=== PATIENT | female | born 1975 | race Caucasian/White ===

== ENCOUNTER 2021-10-02 21:01 | Inpatient (IN) ==
[2021-10-02] MEDS ORDERED: Ketorolac 30 MG/ML VIAL IM ONE (23:09)
[2021-10-02] MEDS ORDERED: methocarbamoL 500 MG TABLET PO ONE (23:45)
[2021-10-03] MEDS ORDERED: Ondansetron 4 MG/2 ML VIAL IVP PRN (04:07)
[2021-10-03] MEDS ORDERED: Ketorolac 30 MG/ML VIAL IM PRN (04:07)
[2021-10-03] MEDS ORDERED: Naloxone 0.4 MG/ML INJ IVP PRN (04:07)
[2021-10-03 04:11] LABS: Basophils % 0.6 %; Eosinophils % 1.2 %; Hematocrit 27.3 % (35.3-44.9); Hemoglobin 9.1 g/dL (11.5-15.4); Immature Granulocytes % 0.3 % (0-4); Immature Platelets 3.5 % (1.1-6.1); Lymphocytes # 0.8 K/mcL (0.6-4.6); Lymphocytes % 23.4 %; Mean Corpuscular HGB Conc 33.3 g/dL (31.6-35.5); Mean Corpuscular Hemoglobin 34.6 pg (28.0-33.3); Mean Corpuscular Volume 103.8 fL (83.0-100.0); Mean Platelet Volume 10.1 fL (9.4-12.4); Monocytes # 0.4 K/mcL (0.0-1.3); Monocytes % 12.7 %; Neutrophils # 2.1 K/mcL (1.6-8.9); Platelet Count 92 K/mcL (140-400); Red Blood Count 2.63 M/mcL (3.82-4.97); Red Cell Distribution Width 15.3 % (11.5-14.5); Segmented Neutrophils % 61.8 %; White Blood Count 3.4 K/mcL (4.3-11.1)
[2021-10-03 04:17] LABS: INR 1.5; Prothrombin Time 17.1 Seconds (9.4-12.1)
[2021-10-03 04:19] LABS: Activated Partial Thrombo Time 43.9 Seconds (26.0-36.0)
[2021-10-03 04:28] LABS: Alanine Aminotransferase 86 Units/L (7-52); Albumin 3.8 g/dL (3.5-5.7); Albumin/Globulin Ratio 1.6 (1.1-2.2); Alkaline Phosphatase 215 Units/L (34-104); Aspartate Amino Transferase 148 Units/L (13-39); BUN/Creatinine Ratio 14 (6-26); Bilirubin,Total 1.1 mg/dL (0.3-1.0); Blood Urea Nitrogen 7 mg/dL (6-20); Calcium 8.1 mg/dL (8.6-10.3); Carbon Dioxide 29 mEq/L (23-29); Chloride 107 mEq/L (98-107); Globulin 2.4 g/dL (2.4-3.5); Glucose 88 mg/dL (70-105); Osmolality,Calculated 291 (280-300); Sodium 142 mEq/L (136-145); Total Protein 6.2 g/dL (6.4-8.9); eGFR For African Americans > 60 (> 60); eGFR For Non-African Americans > 60 (> 60)
[2021-10-03] MEDS ORDERED: *HR* LORazepam 2 MG/ML VIAL IVP PRN ×2 (04:44)
[2021-10-03] MEDS: 0.9 % Sodium Chloride 1,000 ML IVC SCH ×2 (05:02→14:24)
[2021-10-03] MEDS: Pantoprazole 40 MG VIAL IVP SCH (08:16)
[2021-10-03 08:50] LABS: Folate 17.6 ng/mL (3.0-16.0)
[2021-10-03] MEDS ORDERED: Magnesium Sulfate 1 GM/102 ML PIGGYBACK IVPB ONE (08:55)
[2021-10-03 11:10] LABS: Bacteria,Urine Few per hpf (None-Few); Bilirubin,Urine Negative (Negative); Blood,Urine Negative (Negative); Clarity,Urine Turbid (Clear); Color,Urine Yellow (Yellow); Glucose,Urine (UA) Normal (Normal); Ketones,Urine Negative (Negative); Leukocyte Esterase,Urine Large (Negative); Mucus,Urine Few per lpf (None-Few); Nitrite,Urine Positive (Negative); Protein,Urine Trace mg/dL (Neg-Trace); Specific Gravity,Urine 1.016 (1.010-1.025); Urobilinogen,Urine Normal (Normal); WBC,Urine 30-50 per hpf (0-3)
[2021-10-03 13:24] LABS: Amphetamine Screen,Urine Negative ng/mL (Cutoff=1000); Barbiturate Screen,Urine Negative ng/mL (Cutoff=200); Benzodiazepines Screen,Urine Negative ng/mL (Cutoff=200); Cannabinoid Screen,Urine Negative ng/mL (Cutoff = 50); Cocaine Screen,Urine Negative ng/mL (Cutoff= 300); Opiate Screen,Urine Negative ng/mL (Cutoff=300); Phencyclidine Screen,Urine Negative ng/mL (Cutoff=25)
[2021-10-03] MEDS ORDERED: Thiamine (B-1) 100 MG, Folic Acid 1 MG, MVI, adult with vitamin K 10 ML in 0.9 % Sodi... IVPB SCH (18:00)
[2021-10-03] MEDS ORDERED: cefTRIAXone 1,000 MG in 0.9 % Sodium Chloride 10 ML IVP SCH (20:00)
[2021-10-03] MEDS ORDERED: GI Cocktail 40 ML EACH PO ONE (20:30)
[2021-10-03] MEDS ORDERED: methocarbamoL 500 MG TABLET PO ONE (23:09)
[2021-10-04 04:24] LABS: Hemoglobin 9.7 g/dL (11.5-15.4); Segmented Neutrophils % 65.4 %
[2021-10-04 04:26] LABS: Basophils % 0.5 %; Eosinophils # 0.1 K/mcL (0.0-0.6); Eosinophils % 1.5 %; Hematocrit 30.1 % (35.3-44.9); Immature Granulocytes % 0.2 % (0-4); Immature Platelets 3.3 % (1.1-6.1); Lymphocytes # 0.6 K/mcL (0.6-4.6); Lymphocytes % 15.3 %; Mean Corpuscular HGB Conc 32.2 g/dL (31.6-35.5); Mean Corpuscular Hemoglobin 34.3 pg (28.0-33.3); Mean Corpuscular Volume 106.4 fL (83.0-100.0); Mean Platelet Volume 9.8 fL (9.4-12.4); Monocytes # 0.7 K/mcL (0.0-1.3); Monocytes % 17.1 %; Neutrophils # 2.6 K/mcL (1.6-8.9); Red Blood Count 2.83 M/mcL (3.82-4.97); Red Cell Distribution Width 15.4 % (11.5-14.5)
[2021-10-04 04:35] LABS: Platelet Count 88 K/mcL (140-400)
[2021-10-04 04:55] LABS: Alanine Aminotransferase 68 Units/L (7-52); Albumin 3.6 g/dL (3.5-5.7); Albumin/Globulin Ratio 1.3 (1.1-2.2); Alkaline Phosphatase 171 Units/L (34-104); Aspartate Amino Transferase 104 Units/L (13-39); BUN/Creatinine Ratio 16 (6-26); Bilirubin,Total 1.9 mg/dL (0.3-1.0); Blood Urea Nitrogen 7 mg/dL (6-20); Calcium 8.3 mg/dL (8.6-10.3); Carbon Dioxide 22 mEq/L (23-29); Chloride 100 mEq/L (98-107); Globulin 2.8 g/dL (2.4-3.5); Glucose 91 mg/dL (70-105); Osmolality,Calculated 272 (280-300); Potassium 3.7 mEq/L (3.5-5.1); Sodium 132 mEq/L (136-145); Total Protein 6.4 g/dL (6.4-8.9); eGFR For African Americans > 60 (> 60); eGFR For Non-African Americans > 60 (> 60)
[2021-10-04] MEDS: Pantoprazole 40 MG VIAL IVP SCH (07:56)
[2021-10-04] MEDS ORDERED: Albuterol 2.5 MG/3 ML NEBULIZER IH PRN (08:14)
[2021-10-04] MEDS ORDERED: *HR* FentaNYL (PF) 100 MCG/2 ML VIAL IVP PRN (08:14)
[2021-10-04] MEDS ORDERED: *HR* HYDROmorphone PF 0.5 MG/0.5 ML SYRINGE IVP PRN (08:14)
[2021-10-04] MEDS ORDERED: Ondansetron 4 MG/2 ML VIAL ONE (09:23)
[2021-10-04] MEDS ORDERED: *HR* Rocuronium Bromide 50 MG/5 ML VIAL ONE (09:23)
[2021-10-04] MEDS ORDERED: *HR* Propofol 200 MG/20 ML VIAL IVP ONE (09:23)
[2021-10-04] MEDS ORDERED: *HR* Succinylcholine 200 MG/10 ML VIAL IVP ONE (09:23)
[2021-10-04] MEDS ORDERED: *HR* FentaNYL (PF) 100 MCG/2 ML VIAL ONE (09:23)
[2021-10-04] MEDS ORDERED: Lidocaine -MPF 2% 5 ML VIAL ONE (09:23)
[2021-10-04] MEDS ORDERED: Vancomycin 1,000 MG VIAL ONE (09:24)
[2021-10-04] MEDS ORDERED: Tranexamic Acid 1,000 MG/10 ML VIAL ONE (09:27)
[2021-10-04] MEDS ORDERED: Ipratropium/Albuterol Neb 3 ML IH ONE (09:34)
[2021-10-04] MEDS ORDERED: Gentamicin 80 MG/2 ML VIAL ONE ×2 (10:04→10:09)
[2021-10-04] MEDS ORDERED: *HR* HYDROMORPHONE 2 MG/ML VIAL ONE (10:19)
[2021-10-04] MEDS ORDERED: Povidone-Iodine 45 ML, Sodium Chloride IRRigation 1,000 ML IR ONE (10:55)
[2021-10-04] MEDS ORDERED: TOTAL JOINT MIXTURE (100ML) INTRAART ONE (10:55)
[2021-10-04 11:33] LABS: Basophils % 0.6 %; Eosinophils % 2.1 %; Hemoglobin 8.5 g/dL (11.5-15.4); Mean Corpuscular Hemoglobin 34.4 pg (28.0-33.3); Mean Platelet Volume 10.3 fL (9.4-12.4); Nucleated Red Blood Cells 0.4 /100 WBC (0); Red Blood Count 2.47 M/mcL (3.82-4.97)
[2021-10-04 11:34] LABS: Eosinophils # 0.1 K/mcL (0.0-0.6); Hematocrit 25.6 % (35.3-44.9); Immature Platelets 4.5 % (1.1-6.1); Lymphocytes # 1.3 K/mcL (0.6-4.6); Lymphocytes % 25.1 %; Mean Corpuscular HGB Conc 33.2 g/dL (31.6-35.5); Mean Corpuscular Volume 103.6 fL (83.0-100.0); Monocytes # 0.7 K/mcL (0.0-1.3); Monocytes % 12.5 %; Red Cell Distribution Width 15.5 % (11.5-14.5); Segmented Neutrophils % 58.7 %; White Blood Count 5.2 K/mcL (4.3-11.1)
[2021-10-04 11:38] LABS: Neutrophils # 3.1 K/mcL (1.6-8.9); Platelet Count 90 K/mcL (140-400)
[2021-10-04] MEDS ORDERED: Naloxone 0.4 MG/ML INJ IVP PRN ×2 (12:48)
[2021-10-04] MEDS ORDERED: *HR* Promethazine 25 MG/ML VIAL IM PRN (12:48)
[2021-10-04] MEDS ORDERED: Ringers Solution, Lactated 1,000 ML IVC SCH (12:48)
[2021-10-04] MEDS ORDERED: Ketorolac 30 MG/ML VIAL IVP SCH (12:48)
[2021-10-04] MEDS ORDERED: Ondansetron 4 MG/2 ML VIAL IVP PRN ×2 (12:48)
[2021-10-04] MEDS ORDERED: *HR* LORazepam 2 MG/ML VIAL IVP PRN ×2 (12:48)
[2021-10-04] MEDS: CeFAZolin 2 GM/120 ML BAG IVPB SCH (17:15)
[2021-10-04] MEDS: Thiamine (B-1) 100 MG, Folic Acid 1 MG, MVI, adult with vitamin K 10 ML in 0.9 % Sodi... IVPB SCH (17:15)
[2021-10-04] MEDS: Ascorbic Acid 500 MG TABLET PO SCH (17:21)
[2021-10-04] MEDS: *HR* OxyCODONE Immed Rel 5 MG TABLET PO PRN ×2 (17:43→21:58)
[2021-10-04] MEDS ORDERED: Gabapentin 300 MG CAPSULE PO SCH (21:00)
[2021-10-04] MEDS: Gabapentin 300 MG CAPSULE PO SCH (21:29)
[2021-10-04] MEDS: Lactulose Oral Soln 20 GM/30 ML UDC PO SCH (21:29)
[2021-10-05] MEDS: ESTRADIOL TP SCH (00:12)
[2021-10-05] MEDS: CeFAZolin 2 GM/120 ML BAG IVPB SCH ×3 (02:45→18:49)
[2021-10-05] MEDS: *HR* OxyCODONE Immed Rel 5 MG TABLET PO PRN ×5 (03:25→23:46)
[2021-10-05 05:18] LABS: Eosinophils % 0.2 %; Hematocrit 24.3 % (35.3-44.9); Hemoglobin 8.1 g/dL (11.5-15.4); Immature Granulocytes % 0.2 % (0-4); Lymphocytes # 0.4 K/mcL (0.6-4.6); Lymphocytes % 7.8 %; Mean Corpuscular HGB Conc 33.3 g/dL (31.6-35.5); Mean Corpuscular Hemoglobin 34.8 pg (28.0-33.3); Mean Corpuscular Volume 104.3 fL (83.0-100.0); Mean Platelet Volume 10.5 fL (9.4-12.4); Monocytes # 0.8 K/mcL (0.0-1.3); Monocytes % 14.8 %; Neutrophils # 4.1 K/mcL (1.6-8.9); Platelet Count 104 K/mcL (140-400); Red Blood Count 2.33 M/mcL (3.82-4.97); Red Cell Distribution Width 15.5 % (11.5-14.5); White Blood Count 5.3 K/mcL (4.3-11.1)
[2021-10-05 05:36] LABS: BUN/Creatinine Ratio 17 (6-26); Blood Urea Nitrogen 7 mg/dL (6-20); Calcium 8.2 mg/dL (8.6-10.3); Carbon Dioxide 24 mEq/L (23-29); Chloride 101 mEq/L (98-107); Glucose 143 mg/dL (70-105); Osmolality,Calculated 274 (280-300); Potassium 4.3 mEq/L (3.5-5.1); Sodium 132 mEq/L (136-145); eGFR For African Americans > 60 (> 60); eGFR For Non-African Americans > 60 (> 60)
[2021-10-05 05:40] LABS: Albumin 3.5 g/dL (3.5-5.7); Albumin/Globulin Ratio 1.3 (1.1-2.2); Bilirubin,Direct 0.5 mg/dL (0.0-0.2); Bilirubin,Indirect 0.8 mg/dL (0.0-1.0); Bilirubin,Total 1.3 mg/dL (0.3-1.0); Globulin 2.7 g/dL (2.4-3.5); Total Protein 6.2 g/dL (6.4-8.9)
[2021-10-05] MEDS ORDERED: MAGNESIUM HYDROXIDE 400 MG/5 ML PO SCH (09:00)
[2021-10-05] MEDS ORDERED: Pantoprazole 40 MG VIAL IVP SCH (09:00)
[2021-10-05] MEDS ORDERED: [UNRECOGNIZED DRUG - OTHER] PO SCH (09:00)
[2021-10-05] MEDS: Lactulose Oral Soln 20 GM/30 ML UDC PO SCH ×3 (09:09→20:55)
[2021-10-05] MEDS: Gabapentin 300 MG CAPSULE PO SCH ×3 (09:10→20:55)
[2021-10-05] MEDS: Multivit/Ca/Min/Fe/FA 1 TAB TABLET PO SCH (09:10)
[2021-10-05] MEDS: Folic Acid 1 MG TABLET PO SCH (09:10)
[2021-10-05] MEDS: Spironolactone 25 MG TABLET PO SCH (09:10)
[2021-10-05] MEDS: Ascorbic Acid 500 MG TABLET PO SCH ×2 (09:10→18:22)
[2021-10-05] MEDS: Aspirin Enteric Coated 81 MG Tablet PO SCH ×2 (11:15→20:55)
[2021-10-05] MEDS: Thiamine (B-1) 100 MG, Folic Acid 1 MG, MVI, adult with vitamin K 10 ML in 0.9 % Sodi... IVPB SCH (18:23)
[2021-10-06] MEDS: CeFAZolin 2 GM/120 ML BAG IVPB SCH ×3 (01:36→18:04)
[2021-10-06 03:30] LABS: Basophils % 0.2 %; Eosinophils # 0.1 K/mcL (0.0-0.6); Eosinophils % 1.6 %; Hematocrit 21.8 % (35.3-44.9); Hemoglobin 7.1 g/dL (11.5-15.4); Immature Granulocytes % 0.5 % (0-4); Lymphocytes # 0.9 K/mcL (0.6-4.6); Mean Corpuscular HGB Conc 32.6 g/dL (31.6-35.5); Mean Corpuscular Hemoglobin 34.6 pg (28.0-33.3); Mean Corpuscular Volume 106.3 fL (83.0-100.0); Mean Platelet Volume 10.1 fL (9.4-12.4); Neutrophils # 3.7 K/mcL (1.6-8.9); Platelet Count 123 K/mcL (140-400); Red Blood Count 2.05 M/mcL (3.82-4.97); Red Cell Distribution Width 16.2 % (11.5-14.5); Segmented Neutrophils % 64.7 %; White Blood Count 5.7 K/mcL (4.3-11.1)
[2021-10-06 03:52] LABS: BUN/Creatinine Ratio 15 (6-26); Blood Urea Nitrogen 8 mg/dL (6-20); Calcium 8.1 mg/dL (8.6-10.3); Carbon Dioxide 26 mEq/L (23-29); Chloride 105 mEq/L (98-107); Glucose 114 mg/dL (70-105); Osmolality,Calculated 285 (280-300); Potassium 3.8 mEq/L (3.5-5.1); Sodium 138 mEq/L (136-145); eGFR For African Americans > 60 (> 60); eGFR For Non-African Americans > 60 (> 60)
[2021-10-06 03:54] LABS: Albumin 3.3 g/dL (3.5-5.7); Albumin/Globulin Ratio 1.4 (1.1-2.2); Bilirubin,Direct 0.4 mg/dL (0.0-0.2); Bilirubin,Indirect 0.5 mg/dL (0.0-1.0); Bilirubin,Total 0.9 mg/dL (0.3-1.0); Globulin 2.4 g/dL (2.4-3.5); Total Protein 5.7 g/dL (6.4-8.9)
[2021-10-06] MEDS: *HR* OxyCODONE Immed Rel 5 MG TABLET PO PRN ×4 (06:45→22:38)
[2021-10-06] MEDS: Spironolactone 25 MG TABLET PO SCH (08:33)
[2021-10-06] MEDS: Multivit/Ca/Min/Fe/FA 1 TAB TABLET PO SCH (08:33)
[2021-10-06] MEDS: Folic Acid 1 MG TABLET PO SCH (08:33)
[2021-10-06] MEDS: Ascorbic Acid 500 MG TABLET PO SCH ×2 (08:33→17:57)
[2021-10-06] MEDS: Gabapentin 300 MG CAPSULE PO SCH ×3 (08:33→22:27)
[2021-10-06] MEDS: Aspirin Enteric Coated 81 MG Tablet PO SCH ×2 (08:33→22:27)
[2021-10-06] MEDS: Lactulose Oral Soln 20 GM/30 ML UDC PO SCH ×3 (08:39→22:28)
[2021-10-06 10:03] LABS: Hematocrit 23.8 % (35.3-44.9); Hemoglobin 7.8 g/dL (11.5-15.4)
[2021-10-07] MEDS: *HR* OxyCODONE Immed Rel 5 MG TABLET PO PRN ×5 (03:35→23:49)
[2021-10-07] MEDS: CeFAZolin 2 GM/120 ML BAG IVPB SCH ×3 (03:35→17:20)
[2021-10-07 07:17] LABS: Eosinophils # 0.1 K/mcL (0.0-0.6); Hematocrit 23.3 % (35.3-44.9); Hemoglobin 7.4 g/dL (11.5-15.4); Mean Corpuscular HGB Conc 31.8 g/dL (31.6-35.5); Mean Corpuscular Hemoglobin 33.8 pg (28.0-33.3); Mean Corpuscular Volume 106.4 fL (83.0-100.0); Mean Platelet Volume 9.6 fL (9.4-12.4); Nucleated Red Blood Cells 0.6 /100 WBC (0); Platelet Count 135 K/mcL (140-400); Red Blood Count 2.19 M/mcL (3.82-4.97); Red Cell Distribution Width 16.7 % (11.5-14.5); White Blood Count 4.8 K/mcL (4.3-11.1)
[2021-10-07 07:29] LABS: BUN/Creatinine Ratio 14 (6-26); Blood Urea Nitrogen 7 mg/dL (6-20); Carbon Dioxide 28 mEq/L (23-29); Chloride 103 mEq/L (98-107); Glucose 99 mg/dL (70-105); Osmolality,Calculated 280 (280-300); Potassium 3.7 mEq/L (3.5-5.1); Sodium 136 mEq/L (136-145); eGFR For African Americans > 60 (> 60); eGFR For Non-African Americans > 60 (> 60)
[2021-10-07 08:17] LABS: Lymphocytes # 0.5 K/mcL (0.6-4.6); Monocytes # 0.6 K/mcL (0.0-1.3); Neutrophils # 3.7 K/mcL (1.6-8.9)
[2021-10-07 08:18] LABS: Hypochromasia Present (Not Present); Polychromasia 1+ (Not Present)
[2021-10-07 08:19] LABS: Anisocytosis 1+ (Not Present); Platelet Estimate Normal (Normal); Poikilocytosis 1+ (Not Present)
[2021-10-07] MEDS: Lactulose Oral Soln 20 GM/30 ML UDC PO SCH ×3 (08:50→20:32)
[2021-10-07] MEDS: Aspirin Enteric Coated 81 MG Tablet PO SCH ×2 (08:51→19:39)
[2021-10-07] MEDS: Gabapentin 300 MG CAPSULE PO SCH ×3 (08:51→20:32)
[2021-10-07] MEDS: Multivit/Ca/Min/Fe/FA 1 TAB TABLET PO SCH (08:51)
[2021-10-07] MEDS: Folic Acid 1 MG TABLET PO SCH (08:51)
[2021-10-07] MEDS: Ascorbic Acid 500 MG TABLET PO SCH ×2 (08:52→17:08)
[2021-10-07] MEDS: Spironolactone 25 MG TABLET PO SCH (08:52)
[2021-10-07] MEDS: ESTRADIOL TP SCH (17:08)
[2021-10-07] MEDS: MOM Conc 10 ML UD.LIQ PO PRN (17:11)
[2021-10-07] MEDS: Sennosides 8.6 MG TABLET PO PRN (19:39)
[2021-10-08] MEDS: CeFAZolin 2 GM/120 ML BAG IVPB SCH ×3 (02:19→18:31)
[2021-10-08] MEDS: *HR* OxyCODONE Immed Rel 5 MG TABLET PO PRN ×3 (06:27→21:05)
[2021-10-08 06:55] LABS: Basophils % 0.4 %; Eosinophils % 1.2 %; Hematocrit 23.9 % (35.3-44.9); Hemoglobin 7.8 g/dL (11.5-15.4); Immature Granulocytes % 0.8 % (0-4); Lymphocytes % 20.8 %; Mean Corpuscular HGB Conc 32.6 g/dL (31.6-35.5); Mean Corpuscular Hemoglobin 34.7 pg (28.0-33.3); Mean Corpuscular Volume 106.2 fL (83.0-100.0); Mean Platelet Volume 9.4 fL (9.4-12.4); Monocytes % 19.2 %; Platelet Count 130 K/mcL (140-400); Red Blood Count 2.25 M/mcL (3.82-4.97); Red Cell Distribution Width 16.5 % (11.5-14.5); Segmented Neutrophils % 57.6 %
[2021-10-08 06:56] LABS: Eosinophils # 0.1 K/mcL (0.0-0.6); Neutrophils # 2.9 K/mcL (1.6-8.9); Nucleated Red Blood Cells 0.4 /100 WBC (0)
[2021-10-08 07:12] LABS: BUN/Creatinine Ratio 13 (6-26); Blood Urea Nitrogen 7 mg/dL (6-20); Calcium 7.9 mg/dL (8.6-10.3); Carbon Dioxide 29 mEq/L (23-29); Chloride 98 mEq/L (98-107); Glucose 113 mg/dL (70-105); Osmolality,Calculated 273 (280-300); Potassium 3.8 mEq/L (3.5-5.1); Sodium 132 mEq/L (136-145); eGFR For African Americans > 60 (> 60); eGFR For Non-African Americans > 60 (> 60)
[2021-10-08] MEDS: Lactulose Oral Soln 20 GM/30 ML UDC PO SCH ×3 (10:14→21:05)
[2021-10-08] MEDS: Gabapentin 300 MG CAPSULE PO SCH ×3 (10:14→21:04)
[2021-10-08] MEDS: Aspirin Enteric Coated 81 MG Tablet PO SCH ×2 (10:14→21:04)
[2021-10-08] MEDS: Multivit/Ca/Min/Fe/FA 1 TAB TABLET PO SCH (10:15)
[2021-10-08] MEDS: Ascorbic Acid 500 MG TABLET PO SCH ×2 (10:15→18:29)
[2021-10-08] MEDS: Folic Acid 1 MG TABLET PO SCH (10:15)
[2021-10-08] MEDS: Spironolactone 25 MG TABLET PO SCH (10:15)
[2021-10-08] MEDS: MOM Conc 10 ML UD.LIQ PO PRN (21:07)
[2021-10-09 02:40] LABS: Basophils % 0.4 %; Eosinophils % 0.8 %; Hematocrit 23.8 % (35.3-44.9); Hemoglobin 7.7 g/dL (11.5-15.4); Immature Granulocytes % 0.6 % (0-4); Lymphocytes # 1.1 K/mcL (0.6-4.6); Lymphocytes % 19.9 %; Mean Corpuscular HGB Conc 32.4 g/dL (31.6-35.5); Mean Corpuscular Hemoglobin 34.1 pg (28.0-33.3); Mean Corpuscular Volume 105.3 fL (83.0-100.0); Mean Platelet Volume 9.8 fL (9.4-12.4); Monocytes # 1.1 K/mcL (0.0-1.3); Monocytes % 20.1 %; Neutrophils # 3.1 K/mcL (1.6-8.9); Platelet Count 133 K/mcL (140-400); Red Blood Count 2.26 M/mcL (3.82-4.97); Red Cell Distribution Width 16.5 % (11.5-14.5); Segmented Neutrophils % 58.2 %; White Blood Count 5.3 K/mcL (4.3-11.1)
[2021-10-09 02:43] LABS: BUN/Creatinine Ratio 13 (6-26); Blood Urea Nitrogen 6 mg/dL (6-20); Carbon Dioxide 24 mEq/L (23-29); Chloride 98 mEq/L (98-107); Glucose 111 mg/dL (70-105); Magnesium 1.8 mg/dL (1.6-2.6); Osmolality,Calculated 266 (280-300); Phosphorous 2.6 mg/dL (2.7-4.5); Potassium 4.3 mEq/L (3.5-5.1); Sodium 129 mEq/L (136-145); eGFR For African Americans > 60 (> 60); eGFR For Non-African Americans > 60 (> 60)
[2021-10-09] MEDS: CeFAZolin 2 GM/120 ML BAG IVPB SCH ×3 (02:54→18:16)
[2021-10-09] MEDS: *HR* OxyCODONE Immed Rel 5 MG TABLET PO PRN ×3 (02:55→20:06)
[2021-10-09 03:17] LABS: Platelet Estimate Normal (Normal); Polychromasia 1+ (Not Present)
[2021-10-09] MEDS: Spironolactone 25 MG TABLET PO SCH (08:58)
[2021-10-09] MEDS: Folic Acid 1 MG TABLET PO SCH (08:58)
[2021-10-09] MEDS: Gabapentin 300 MG CAPSULE PO SCH ×3 (08:58→20:04)
[2021-10-09] MEDS: Lactulose Oral Soln 20 GM/30 ML UDC PO SCH ×3 (08:58→20:04)
[2021-10-09] MEDS: Ascorbic Acid 500 MG TABLET PO SCH ×2 (08:58→18:11)
[2021-10-09] MEDS: Aspirin Enteric Coated 81 MG Tablet PO SCH ×2 (08:58→20:04)
[2021-10-09] MEDS: Multivit/Ca/Min/Fe/FA 1 TAB TABLET PO SCH (08:59)
[2021-10-09] MEDS: MOM Conc 10 ML UD.LIQ PO PRN (09:03)
[2021-10-10] MEDS: *HR* OxyCODONE Immed Rel 5 MG TABLET PO PRN ×5 (00:18→20:21)
[2021-10-10] MEDS: CeFAZolin 2 GM/120 ML BAG IVPB SCH ×3 (02:06→17:31)
[2021-10-10 06:57] LABS: Basophils % 0.7 %; Eosinophils # 0.1 K/mcL (0.0-0.6); Eosinophils % 1.3 %; Hematocrit 23.1 % (35.3-44.9); Hemoglobin 7.5 g/dL (11.5-15.4); Immature Granulocytes % 0.2 % (0-4); Lymphocytes # 0.9 K/mcL (0.6-4.6); Lymphocytes % 20.4 %; Mean Corpuscular HGB Conc 32.5 g/dL (31.6-35.5); Mean Corpuscular Hemoglobin 33.6 pg (28.0-33.3); Mean Corpuscular Volume 103.6 fL (83.0-100.0); Mean Platelet Volume 9.8 fL (9.4-12.4); Monocytes # 0.9 K/mcL (0.0-1.3); Monocytes % 18.9 %; Neutrophils # 2.7 K/mcL (1.6-8.9); Platelet Count 152 K/mcL (140-400); Red Blood Count 2.23 M/mcL (3.82-4.97); Red Cell Distribution Width 16.4 % (11.5-14.5); Segmented Neutrophils % 58.5 %; White Blood Count 4.6 K/mcL (4.3-11.1)
[2021-10-10 07:12] LABS: Platelet Estimate Normal (Normal)
[2021-10-10 07:18] LABS: BUN/Creatinine Ratio 12 (6-26); Blood Urea Nitrogen 6 mg/dL (6-20); Carbon Dioxide 27 mEq/L (23-29); Chloride 98 mEq/L (98-107); Glucose 105 mg/dL (70-105); Magnesium 1.8 mg/dL (1.6-2.6); Osmolality,Calculated 270 (280-300); Phosphorous 2.4 mg/dL (2.7-4.5); Potassium 3.6 mEq/L (3.5-5.1); Sodium 131 mEq/L (136-145); eGFR For African Americans > 60 (> 60); eGFR For Non-African Americans > 60 (> 60)
[2021-10-10] MEDS: Folic Acid 1 MG TABLET PO SCH (08:33)
[2021-10-10] MEDS: Gabapentin 300 MG CAPSULE PO SCH ×3 (08:34→20:14)
[2021-10-10] MEDS: Lactulose Oral Soln 20 GM/30 ML UDC PO SCH ×3 (08:34→20:14)
[2021-10-10] MEDS: Multivit/Ca/Min/Fe/FA 1 TAB TABLET PO SCH (08:34)
[2021-10-10] MEDS: Ascorbic Acid 500 MG TABLET PO SCH ×2 (08:34→17:31)
[2021-10-10] MEDS: Aspirin Enteric Coated 81 MG Tablet PO SCH ×2 (08:34→20:14)
[2021-10-10] MEDS: Spironolactone 25 MG TABLET PO SCH (08:34)
[2021-10-10] MEDS: ESTRADIOL TP SCH (17:32)
[2021-10-11] MEDS: CeFAZolin 2 GM/120 ML BAG IVPB SCH (01:59)
[2021-10-11] MEDS: *HR* OxyCODONE Immed Rel 5 MG TABLET PO PRN ×5 (04:54→21:58)
[2021-10-11 05:51] LABS: Hematocrit 24.1 % (35.3-44.9); Hemoglobin 7.9 g/dL (11.5-15.4)
[2021-10-11 06:24] LABS: BUN/Creatinine Ratio 17 (6-26); Blood Urea Nitrogen 7 mg/dL (6-20); Carbon Dioxide 27 mEq/L (23-29); Chloride 99 mEq/L (98-107); Glucose 93 mg/dL (70-105); Magnesium 1.7 mg/dL (1.6-2.6); Osmolality,Calculated 272 (280-300); Phosphorous 3.3 mg/dL (2.7-4.5); Potassium 3.6 mEq/L (3.5-5.1); Sodium 132 mEq/L (136-145); eGFR For African Americans > 60 (> 60); eGFR For Non-African Americans > 60 (> 60)
[2021-10-11] MEDS: Multivit/Ca/Min/Fe/FA 1 TAB TABLET PO SCH (09:52)
[2021-10-11] MEDS: Lactulose Oral Soln 20 GM/30 ML UDC PO SCH ×3 (09:52→19:43)
[2021-10-11] MEDS: Aspirin Enteric Coated 81 MG Tablet PO SCH ×2 (09:52→19:33)
[2021-10-11] MEDS: Spironolactone 25 MG TABLET PO SCH (09:53)
[2021-10-11] MEDS: Folic Acid 1 MG TABLET PO SCH (09:53)
[2021-10-11] MEDS: Gabapentin 300 MG CAPSULE PO SCH ×3 (09:53→19:32)
[2021-10-11] MEDS: Ascorbic Acid 500 MG TABLET PO SCH ×2 (09:58→17:06)
[2021-10-12] MEDS: *HR* OxyCODONE Immed Rel 5 MG TABLET PO PRN ×5 (06:10→22:23)
[2021-10-12] MEDS: Spironolactone 25 MG TABLET PO SCH (10:32)
[2021-10-12] MEDS: Folic Acid 1 MG TABLET PO SCH (10:32)
[2021-10-12] MEDS: Aspirin Enteric Coated 81 MG Tablet PO SCH ×2 (10:32→22:17)
[2021-10-12] MEDS: Ascorbic Acid 500 MG TABLET PO SCH ×2 (10:32→18:21)
[2021-10-12] MEDS: Multivit/Ca/Min/Fe/FA 1 TAB TABLET PO SCH (10:32)
[2021-10-12] MEDS: Lactulose Oral Soln 20 GM/30 ML UDC PO SCH ×3 (10:33→22:17)
[2021-10-12] MEDS: Gabapentin 300 MG CAPSULE PO SCH ×3 (10:33→20:03)
[2021-10-12] MEDS: Nystatin POWDER 30 GM BOTTLE TP SCH (18:21)
[2021-10-12] MEDS: Sennosides 8.6 MG TABLET PO PRN (18:21)
[2021-10-12] MEDS: Ringers Solution, Lactated 1,000 ML IVC SCH (22:17)
[2021-10-12] MEDS ORDERED: Morphine Sulfate 2 MG/ML SYRINGE IVP ONE (23:39)
[2021-10-13] MEDS: *HR* OxyCODONE Immed Rel 5 MG TABLET PO PRN ×2 (03:25→07:42)
[2021-10-13] MEDS: Ringers Solution, Lactated 1,000 ML IVC SCH (04:39)
[2021-10-13] MEDS ORDERED: *HR* Dextrose 50 % in Water (Syg) 50 ML SYRINGE IVP PRN (07:32)
[2021-10-13] MEDS ORDERED: Dextrose Gel 15 GM/37.5 ML TUBE PO PRN ×2 (07:32)
[2021-10-13] MEDS ORDERED: D5% in Water 1,000 ML IVC PRN (07:32)
[2021-10-13] MEDS: Lactulose Oral Soln 20 GM/30 ML UDC PO SCH ×3 (07:39→21:09)
[2021-10-13] MEDS: Multivit/Ca/Min/Fe/FA 1 TAB TABLET PO SCH (07:41)
[2021-10-13] MEDS: Folic Acid 1 MG TABLET PO SCH (07:41)
[2021-10-13] MEDS: Gabapentin 300 MG CAPSULE PO SCH ×3 (07:41→21:10)
[2021-10-13] MEDS: Ascorbic Acid 500 MG TABLET PO SCH ×2 (07:41→16:16)
[2021-10-13] MEDS: Aspirin Enteric Coated 81 MG Tablet PO SCH ×2 (07:42→21:10)
[2021-10-13] MEDS: Spironolactone 25 MG TABLET PO SCH (07:42)
[2021-10-13] MEDS ORDERED: Ringers Solution, Lactated 1,000 ML IVC SCH (07:45)
[2021-10-13] MEDS ORDERED: *HR* HYDROmorphone (PF) 1 MG/ML SYRINGE IVP ONE (08:22)
[2021-10-13] MEDS: Pantoprazole 40 MG VIAL IVP SCH (09:40)
[2021-10-13] MEDS: Nystatin POWDER 30 GM BOTTLE TP SCH ×3 (14:07→21:10)
[2021-10-13] MEDS: ESTRADIOL TP SCH (16:16)
[2021-10-13] MEDS: MOM Conc 10 ML UD.LIQ PO PRN (21:14)
[2021-10-14 04:14] LABS: Basophils # 0.1 K/mcL (0.0-0.2); Basophils % 1.5 %; Eosinophils # 0.1 K/mcL (0.0-0.6); Eosinophils % 2.5 %; Hematocrit 25.3 % (35.3-44.9); Immature Granulocytes % 0.5 % (0-4); Lymphocytes % 24.6 %; Mean Corpuscular HGB Conc 31.6 g/dL (31.6-35.5); Mean Corpuscular Hemoglobin 33.8 pg (28.0-33.3); Mean Corpuscular Volume 106.8 fL (83.0-100.0); Mean Platelet Volume 9.5 fL (9.4-12.4); Monocytes # 0.6 K/mcL (0.0-1.3); Monocytes % 15.9 %; Neutrophils # 2.2 K/mcL (1.6-8.9); Platelet Count 223 K/mcL (140-400); Red Blood Count 2.37 M/mcL (3.82-4.97); Red Cell Distribution Width 17.4 % (11.5-14.5)
[2021-10-14 04:35] LABS: BUN/Creatinine Ratio 13 (6-26); Blood Urea Nitrogen 5 mg/dL (6-20); Calcium 8.2 mg/dL (8.6-10.3); Carbon Dioxide 27 mEq/L (23-29); Chloride 102 mEq/L (98-107); Glucose 86 mg/dL (70-105); Magnesium 1.7 mg/dL (1.6-2.6); Osmolality,Calculated 281 (280-300); Phosphorous 3.7 mg/dL (2.7-4.5); Potassium 3.6 mEq/L (3.5-5.1); Sodium 137 mEq/L (136-145); eGFR For African Americans > 60 (> 60); eGFR For Non-African Americans > 60 (> 60)
[2021-10-14 04:40] LABS: Anisocytosis 1+ (Not Present); Platelet Estimate Normal (Normal); Polychromasia 1+ (Not Present)
[2021-10-14 04:41] LABS: Reactive Lymphocytes Present (Not Present)
[2021-10-14] MEDS: Lactulose Oral Soln 20 GM/30 ML UDC PO SCH ×3 (08:57→19:47)
[2021-10-14] MEDS: Pantoprazole 40 MG VIAL IVP SCH (08:58)
[2021-10-14] MEDS: Multivit/Ca/Min/Fe/FA 1 TAB TABLET PO SCH (08:58)
[2021-10-14] MEDS: Aspirin Enteric Coated 81 MG Tablet PO SCH ×2 (08:58→19:47)
[2021-10-14] MEDS: Folic Acid 1 MG TABLET PO SCH (08:58)
[2021-10-14] MEDS: Gabapentin 300 MG CAPSULE PO SCH ×3 (08:58→19:47)
[2021-10-14] MEDS: Ascorbic Acid 500 MG TABLET PO SCH ×2 (08:58→15:37)
[2021-10-14] MEDS: Nystatin POWDER 30 GM BOTTLE TP SCH ×3 (08:59→19:51)
[2021-10-14] MEDS ORDERED: Ringers Solution, Lactated 1,000 ML IVC SCH (09:00)
[2021-10-14 10:25] LABS: Amylase 15 Units/L (29-103); Lipase 25 Units/L (11-82)
[2021-10-15 07:22] LABS: Basophils # 0.1 K/mcL (0.0-0.2); Basophils % 1.3 %; Eosinophils # 0.1 K/mcL (0.0-0.6); Hematocrit 25.2 % (35.3-44.9); Immature Granulocytes % 0.5 % (0-4); Lymphocytes # 1.3 K/mcL (0.6-4.6); Mean Corpuscular HGB Conc 31.7 g/dL (31.6-35.5); Mean Corpuscular Hemoglobin 33.6 pg (28.0-33.3); Mean Corpuscular Volume 105.9 fL (83.0-100.0); Mean Platelet Volume 9.4 fL (9.4-12.4); Monocytes # 0.6 K/mcL (0.0-1.3); Monocytes % 14.1 %; Platelet Count 270 K/mcL (140-400); Red Blood Count 2.38 M/mcL (3.82-4.97); Red Cell Distribution Width 17.8 % (11.5-14.5); Segmented Neutrophils % 49.1 %
[2021-10-15 07:32] LABS: BUN/Creatinine Ratio 7 (6-26); Blood Urea Nitrogen 3 mg/dL (6-20); Calcium 7.8 mg/dL (8.6-10.3); Carbon Dioxide 29 mEq/L (23-29); Chloride 104 mEq/L (98-107); Glucose 87 mg/dL (70-105); Magnesium 1.9 mg/dL (1.6-2.6); Osmolality,Calculated 282 (280-300); Phosphorous 3.5 mg/dL (2.7-4.5); Potassium 3.9 mEq/L (3.5-5.1); Sodium 138 mEq/L (136-145); eGFR For African Americans > 60 (> 60); eGFR For Non-African Americans > 60 (> 60)
[2021-10-15 07:34] LABS: Albumin/Globulin Ratio 1.3 (1.1-2.2); Bilirubin,Direct 0.5 mg/dL (0.0-0.2); Bilirubin,Indirect 0.8 mg/dL (0.0-1.0); Bilirubin,Total 1.3 mg/dL (0.3-1.0); Globulin 2.4 g/dL (2.4-3.5); Total Protein 5.4 g/dL (6.4-8.9)
[2021-10-15 08:42] LABS: Anisocytosis 1+ (Not Present); Hypochromasia Present (Not Present); Macrocytosis Present (Not Present); Platelet Estimate Normal (Normal)
[2021-10-15] MEDS: Multivit/Ca/Min/Fe/FA 1 TAB TABLET PO SCH (09:07)
[2021-10-15] MEDS: Gabapentin 300 MG CAPSULE PO SCH ×3 (09:07→19:48)
[2021-10-15] MEDS: Ascorbic Acid 500 MG TABLET PO SCH ×2 (09:07→16:37)
[2021-10-15] MEDS: Aspirin Enteric Coated 81 MG Tablet PO SCH ×2 (09:07→19:48)
[2021-10-15] MEDS: Pantoprazole 40 MG VIAL IVP SCH (09:08)
[2021-10-15] MEDS: Lactulose Oral Soln 20 GM/30 ML UDC PO SCH ×3 (09:08→19:49)
[2021-10-15] MEDS: Folic Acid 1 MG TABLET PO SCH (09:08)
[2021-10-15] MEDS ORDERED: Iopamidol - 370 500 ML MLS IVP ONE (09:19)
[2021-10-15] MEDS: polyethylene glycoL 3350 17 GM POWD.PACK PO SCH ×2 (12:38→19:48)
[2021-10-15] MEDS: Simethicone 80 MG TAB.CHEW PO PRN ×2 (12:38→19:56)
[2021-10-15] MEDS: Nystatin POWDER 30 GM BOTTLE TP SCH ×2 (15:03→15:04)
[2021-10-15 17:10] LABS: RBC,Peritoneal Fluid 3000 RBC/mcL
[2021-10-15 17:53] LABS: Glucose,Peritoneal Fluid 104 mg/dL (No Ref Range); LDH,Peritoneal Fluid 39 Units/L (No Ref Range); Total Protein,Peritoneal Fluid < 2.0 g/dL
[2021-10-15 18:13] LABS: Appearance of Peritoneal Fl HAZY (Clear)
[2021-10-15] MEDS: Sennosides 8.6 MG TABLET PO PRN (19:56)
[2021-10-15 22:08] LABS: Basophils,Peritoneal Fluid 0 %; Eosinophils,Peritoneal Fluid 0 %
[2021-10-16 04:56] LABS: Basophils # 0.1 K/mcL (0.0-0.2); Basophils % 1.7 %; Eosinophils # 0.2 K/mcL (0.0-0.6); Eosinophils % 4.3 %; Hematocrit 26.1 % (35.3-44.9); Hemoglobin 8.3 g/dL (11.5-15.4); Immature Granulocytes % 0.3 % (0-4); Lymphocytes # 1.2 K/mcL (0.6-4.6); Lymphocytes % 34.3 %; Mean Corpuscular HGB Conc 31.8 g/dL (31.6-35.5); Mean Platelet Volume 8.9 fL (9.4-12.4); Monocytes # 0.5 K/mcL (0.0-1.3); Monocytes % 12.9 %; Neutrophils # 1.6 K/mcL (1.6-8.9); Platelet Count 262 K/mcL (140-400); Red Blood Count 2.44 M/mcL (3.82-4.97); Red Cell Distribution Width 17.4 % (11.5-14.5); Segmented Neutrophils % 46.5 %; White Blood Count 3.5 K/mcL (4.3-11.1)
[2021-10-16 05:14] LABS: BUN/Creatinine Ratio 8 (6-26); Blood Urea Nitrogen 3 mg/dL (6-20); Calcium 8.2 mg/dL (8.6-10.3); Carbon Dioxide 26 mEq/L (23-29); Chloride 106 mEq/L (98-107); Glucose 87 mg/dL (70-105); Magnesium 1.9 mg/dL (1.6-2.6); Osmolality,Calculated 282 (280-300); Phosphorous 4.2 mg/dL (2.7-4.5); Potassium 3.9 mEq/L (3.5-5.1); Sodium 138 mEq/L (136-145); eGFR For African Americans > 60 (> 60); eGFR For Non-African Americans > 60 (> 60)
[2021-10-16 05:17] LABS: Platelet Estimate Normal (Normal); Reactive Lymphocytes Present (Not Present)
[2021-10-16 05:18] LABS: Hypochromasia Present (Not Present)
[2021-10-16] MEDS: Lactulose Oral Soln 20 GM/30 ML UDC PO SCH ×2 (08:41→15:09)
[2021-10-16] MEDS: Aspirin Enteric Coated 81 MG Tablet PO SCH (08:42)
[2021-10-16] MEDS: Folic Acid 1 MG TABLET PO SCH (08:42)
[2021-10-16] MEDS: Gabapentin 300 MG CAPSULE PO SCH ×2 (08:42→15:09)
[2021-10-16] MEDS: Multivit/Ca/Min/Fe/FA 1 TAB TABLET PO SCH (08:42)
[2021-10-16] MEDS: polyethylene glycoL 3350 17 GM POWD.PACK PO SCH (08:43)
[2021-10-16] MEDS: Ascorbic Acid 500 MG TABLET PO SCH ×2 (08:43→18:04)
[2021-10-16] MEDS: Pantoprazole 40 MG VIAL IVP SCH (08:43)
[2021-10-16] MEDS: Nystatin POWDER 30 GM BOTTLE TP SCH ×3 (08:46→15:10)
[2021-10-16] MEDS ORDERED: Albumin 25% 25gram/100mL 25 GM/100 ML IV.SOLN IVPB ONE (11:52)
[2021-10-16] MEDS ORDERED: Furosemide 40 MG/4 ML VIAL IVP ONE (14:30)
[2021-10-16 15:01] LABS: Influenza A PCR Negative (Negative); Influenza B PCR Negative (Negative); Resp. Syncytial Virus PCR Negative (Negative)
[2021-10-16 15:37] VITALS: BP 113/71; PULSE 77; TEMP 98.8; O2SAT 95
[2021-10-16 16:23] LABS: SARS-CoV-2 by PCR (In House) Negative (Negative)
[2021-10-16] MEDS: ESTRADIOL TP SCH (18:45)
[2021-10-17 13:12] LABS: Fluid Source for Albumin PERITONEAL
== END 2021-10-16 19:00 | DRG 521 ==
LOC: 4WAOSI 21:01 → EMEROOARM 21:01 → SUATTDRO 10-03 03:31 → 4WAOSI 10-03 04:19 → SUATTDRO 10-04 10:31
PROVIDERS: ADMIT Internal Medicine; ATTEND Pharmacist